=== PATIENT | female | born 1965 | race Caucasian/White ===

== ENCOUNTER 2022-02-08 10:40 | Outpatient (CLI) | payer MEDICARE, MEDICAID | END 2022-02-08 10:41 | disposition home or self-care (01) | LOC: CSHWCC 10:40 | PROVIDERS: ATTEND Nurse Practitioner Family | DX: L30.8 Other specified dermatitis (principal) | CPT/HCPCS: 97139; G0463; 99213 ==

== ENCOUNTER 2022-11-08 13:33 | Outpatient (CLI) | payer MEDICARE, MEDICAID | END 2022-11-08 13:34 | disposition home or self-care (01) | LOC: CSHWCC 13:33 | PROVIDERS: ATTEND Nurse Practitioner Family | DX: L30.8 Other specified dermatitis (principal) | CPT/HCPCS: 99213; G0463 ==

== ENCOUNTER 2023-11-30 14:00 | Outpatient (CLI) | payer MEDICARE, MEDICAID | END 2023-11-30 14:01 | disposition home or self-care (01) | LOC: CSHWCC 14:00 | PROVIDERS: ATTEND Nurse Practitioner Family | DX: L89.312 Pressure ulcer of right buttock, stage 2 (principal); L24.A0 Irritant contact dermatitis due to friction or contact with body fluids, unspecified | CPT/HCPCS: 97597 ==